=== PATIENT | female | born 1935 | race Caucasian/White ===

== ENCOUNTER 2016-11-28 11:16 | Day surgery (SDC) | payer MEDICARE ==
[2016-11-28] MEDS ORDERED: IV START KIT ONE (11:45)
[2016-11-28] MEDS ORDERED: LACTATED RINGERS 1,000 ML ONE (11:45)
[2016-11-28] MEDS ORDERED: LIDOCAINE 2% (PRES FREE) 5 ML VIAL ONE (13:08)
[2016-11-28] MEDS ORDERED: PROPOFOL 20 ML IV ONE (13:08)
== END 2016-11-28 14:24 | disposition home or self-care (01) ==
LOC: SDC 11:16
PROVIDERS: ATTEND Internal Medicine Gastroenterology
PROC: 0DJD8ZZ Inspection of Lower Intestinal Tract, Via Natural or Artificial Opening Endoscopic (ICD-10-PCS; principal; 2016-11-28)
DX: K64.1 Second degree hemorrhoids (principal); K57.30 Diverticulosis of large intestine without perforation or abscess without bleeding; Z86.010 Personal history of colon polyps; Z83.71 Family history of colonic polyps; I10 Essential (primary) hypertension; G47.33 Obstructive sleep apnea (adult) (pediatric); M79.1 Myalgia; Z88.8 Allergy status to other drugs, medicaments and biological substances; Z79.82 Long term (current) use of aspirin
CPT/HCPCS: 45378; J7120